=== PATIENT | male | born 1950 | race Caucasian/White ===

== ENCOUNTER 2017-01-13 13:56 | Outpatient (CLI) | payer MEDICARE, OTHER | END 2017-01-13 13:57 | disposition home or self-care (01) | DX: R91.1 Solitary pulmonary nodule (principal) ==

== ENCOUNTER 2018-05-09 11:18 | Outpatient (CLI) | payer MEDICARE, OTHER | END 2018-05-09 11:19 | disposition home or self-care (01) | LOC: SC 11:18 | PROVIDERS: ATTEND Internal Medicine Pulmonary Disease | DX: G47.30 Sleep apnea, unspecified (principal); G47.10 Hypersomnia, unspecified; R06.83 Snoring | CPT/HCPCS: 99203; G0463; 99212 ==

== ENCOUNTER 2018-06-21 20:18 | Outpatient (CLI) | payer MEDICARE, OTHER | END 2018-06-21 20:19 | disposition home or self-care (01) | LOC: SC 20:18 | PROVIDERS: ATTEND Internal Medicine Pulmonary Disease | DX: G47.33 Obstructive sleep apnea (adult) (pediatric) (principal); G47.61 Periodic limb movement disorder; R00.1 Bradycardia, unspecified | CPT/HCPCS: 95810 ==

== ENCOUNTER 2018-07-25 14:02 | Outpatient (CLI) | payer MEDICARE, OTHER | END 2018-07-25 14:03 | disposition home or self-care (01) | LOC: SC 14:02 | PROVIDERS: ATTEND Nurse Practitioner Family | DX: G47.33 Obstructive sleep apnea (adult) (pediatric) (principal); R06.3 Periodic breathing; G47.61 Periodic limb movement disorder; R00.1 Bradycardia, unspecified; I49.3 Ventricular premature depolarization | CPT/HCPCS: 99214; G0463; 99212 ==

== ENCOUNTER 2018-08-19 19:31 | Outpatient (CLI) | payer MEDICARE, OTHER | END 2018-08-19 19:32 | disposition home or self-care (01) | LOC: SC 19:31 | PROVIDERS: ATTEND Internal Medicine Pulmonary Disease | DX: G47.33 Obstructive sleep apnea (adult) (pediatric) (principal); G47.61 Periodic limb movement disorder | CPT/HCPCS: 95811 ==

== ENCOUNTER 2019-01-18 12:47 | Outpatient (CLI) | payer MEDICARE, OTHER | END 2019-01-18 12:48 | disposition home or self-care (01) | LOC: SC 12:47 | PROVIDERS: ATTEND Nurse Practitioner Family | DX: G47.33 Obstructive sleep apnea (adult) (pediatric) (principal) | CPT/HCPCS: 99214; G0463; 99212 ==

== ENCOUNTER 2019-04-19 10:09 | Outpatient (CLI) | payer MEDICARE, OTHER | END 2019-04-19 10:10 | disposition home or self-care (01) | LOC: SC 10:09 | PROVIDERS: ATTEND Nurse Practitioner Family | DX: G47.33 Obstructive sleep apnea (adult) (pediatric) (principal) | CPT/HCPCS: 99215; G0463; 99212 ==

== ENCOUNTER 2019-06-08 09:59 | Outpatient (CLI) | payer MEDICARE, OTHER ==
[2019-06-08 11:20] VITALS: BP 114/64
--- NOTE | 2019-06-08 11:20 | SLEEP CARE CONSULTATION ---
Information from patient questionnaire entered by Oma Mora. I have reviewed and concur with the information entered by Oma Mora. This document represents the service I personally performed and the decisions made by me, Tanisha Silveira, RN, MSN, CARE MGR. History of Present Illness Previous diagnosis: Mild, Obstructive Sleep Apnea-Hypopnea Syndrome AHI: 11.7 Reason for CPAP/BiPAP follow up: other (2 month) Equipment type: CPAP Equipment obtained from: [facility] Mask style: Full face Mask brand: Resmed Backup mask available: No Last cushion change: this week HPI additional information: Oral dryness was better with change in humidity but drooling worse. The mask shown Kimmie View at last visit to allow him to read in bed was not due in his schedule to obtain until this month. He has an appointment with [facility] in a couple of weeks for the fitting. He has not tried CPAP pillow as wants to wait until gets new mask. The new pressure is more comfortable. He is working on battery options for camping. I just talked to [facility] who will be sending me information to handout. CPAP Compliance Data - Data Reviewed with Patient Average duration of nightly device use: 6.5 Compliance rate %: 88.3 (60 days) Current pressure setting (cmH2O): 6-7 Humidity settin Heated hose settin Average residual AHI: 14.2 Central apnea: 0.9 Obstructive apnea: 1.0 Hypopnea: 12.3 Average large leak: 12 mins 52 secs Subjective Patient concerns: reports: mask discomfort (nasal bridge - mask fitting in June), air blowing in eyes (infrequent when mask dislodges), mask leak noise (rare ), dry mouth, nose, throat (dry mouth), other (high AHI numbers). denies: aerophagia, condensation in mask/hose, nasal congestion, epistaxis Observed to snore while using device: No Current pressure setting perceived as: comfortable On therapy, patient: reports: other (not sleeping as well or as rested with new pressure. He is napping more with new pressure.). denies: drowsiness while driving Initial [place] Sleepiness Scale score: 11 Current [place] Sleepiness Scale score: 9 Allergies and Home Medications Known drug allergies: Yes (PPD converter, sulfa, zocor) Home medication list reviewed: Yes Allergy and home medication list: Medication List Medication Name (generic/name brand) Strength & Dosage Amantadine HCI 100mg tab one twice daily Amlodipine Besylate 5mg tab one daily Lisinopril 10mg tab one twice daily with 20mg Lisinopril 20mg tab one twice daily with 10mg Atorvastatin Calcium 80mg tab one daily Carbidopa-Levodopa 25-100mg tab 2.5 am, 2 pm, 1 bedtime Entacapone 200mg tab one daily Topamax 10mg tab one daily Finasteride 5mg tab one daily Hydrochlorothiazide 25mg tab one daily Pramipexole Dihydrochloride 0.75mg tab one three times daily Tamsulosin HCI 0.4mg cap one twice daily Senna & Docusate Sodium 8.6-50mg tab one daily Aspirin 325mg tab one daily Vitamin B-12 1000mcg one twice daily Vitamin D 1000unit tab two daily Allergy List Zocor Sulfa PPD Converter Review of Systems Review of systems same as previous: Yes (denies changes) Physical Exam Blood Pressure: 114/64 Cuff size: long Heart Rate: 68 O2 Saturation: 98 Height: 5 ft 11.5 in Weight (kg): 240 lb Body Mass Index: 33.0 BMI Classification: Class 1 Impression and Plan 1. Obstructive Sleep Apnea-Hypopnea Syndrome, mild, with good treatment compliance and elevated residual AHI. On CPAP therapy, the patient has better sleep quality and is more rested overall. For his mask concerns, a new mask fitting as discussed at last visit is in process and scheduled in a couple of weeks. If there is continued mask leaks, he is to consider the CPAP pillow discussed previously. The new pressure though comfortable has increased sleepiness symptoms so I will change his autoCPAP pressure back to 6-8cmH20. I will also increase the A flex to 3 to reduce recurrence of chest discomfort. He is to contact me if pressure change uncomfortable or still not relieving sleepiness symptoms or chest discomfort. Patient's apnea severity and rationale for treatment to reduce apnea, improve sleep quality and reduce cardiovascular and cerebrovascular events was reviewed. I also reviewed the benefit of consistent device use of CPAP for hypertension, cardiac disease, diabetes. * Change CPAP pressure to 6-8 cmH2O * Try new mask. * Consider CPAP pillow. * Notify me if snoring with mask or feeling that the pressure is too much or too little * Attempt to lose weight * Return for follow up in 2 months, or sooner if concerns arise I spent 100% of this 30 minute visit face to face with the patient with greater than 50% of this was spent time counseling the patient and coordination of care.
== END 2019-06-08 10:00 | disposition home or self-care (01) ==
LOC: SC 09:59
PROVIDERS: ATTEND Nurse Practitioner Family
DX: G47.33 Obstructive sleep apnea (adult) (pediatric) (principal)
CPT/HCPCS: 99214; G0463; 99212

== ENCOUNTER 2019-08-08 10:11 | Outpatient (CLI) | payer MEDICARE, OTHER ==
[2019-08-08 11:15] VITALS: BP 112/72
--- NOTE | 2019-08-08 11:15 | SLEEP CARE CONSULTATION ---
Information from patient questionnaire entered by Yesenia Meyer. I have reviewed and concur with the information entered by Yesenia Meyer. This document represents the service I personally performed and the decisions made by me, Tanisha Silveira, RN, MSN, SPRAY TECHNICIAN. History of Present Illness Previous diagnosis: Mild, Obstructive Sleep Apnea-Hypopnea Syndrome AHI: 11.7 Reason for CPAP/BiPAP follow up: other (2 MONTH) Equipment type: CPAP Equipment obtained from: [facility] Mask style: Full face Mask brand: Resmed Backup mask available: Yes Last cushion change: 6 weeks ago - shipment coming 08-16-19 Prior sleep studies: Yes HPI additional information: Patient noted increased residual AHI until he changed his sleeping position to lying supine with 1 pillow. He feels it is due to less mask leaks and better alignment of neck. I also reduced his autoCPAP pressure due to high AHI from mask leaks. His mask was also dislodging in sleep until he changed position and adjusted mask. He has decided not change mask styles but instead update current mask as headgear wearing out. He found the Kimmie View mask given did not work better. CPAP Compliance Data - Data Reviewed with Patient Average duration of nightly device use: 6H 30M Compliance rate %: 93.3 Current pressure setting (cmH2O): 4-9 Humidity settin Heated hose settin Average residual AHI: 17.3 (but past month 8.2) Central apnea: 1.0 Obstructive apnea: 2.3 Hypopnea: 14.0 Subjective Patient concerns: reports: mask discomfort (from tightness to compensate for mask leaks. ), mask leak noise (only when magnet comes off on left side a couple times a week. ), nasal congestion (post nasal drainage -), dry mouth, nose, throat. denies: aerophagia, air blowing in eyes, condensation in mask/hose, epistaxis (tried a higher humidity but had increased drooling due to Parkinson's) Observed to snore while using device: Yes (mild ) Current pressure setting perceived as: too high (at times) On therapy, patient: reports: sleeping better (a little - getting used to supine position), awakening more refreshed (a little), being more awake and alert during the day (a little), more rested overall (a little). denies: drowsiness while driving Initial [place] Sleepiness Scale score: 11 Current [place] Sleepiness Scale score: 7 Allergies and Home Medications Known drug allergies: No Home medication list reviewed: Yes (adjusted parkinsons medication) Allergy and home medication list: Medication Name (generic/name brand) Strength & Dosage Amantadine HCI 100mg tab one twice daily Amlodipine Besylate 5mg tab one daily Lisinopril 10mg tab one twice daily with 20mg Lisinopril 20mg tab one twice daily with 10mg Atorvastatin Calcium 80mg tab one daily Carbidopa-Levodopa 25-100mg tab 2.5 am, 2 pm, 1 bedtime Entacapone 200mg tab one daily Topamax 10mg tab one daily Finasteride 5mg tab one daily Hydrochlorothiazide 25mg tab one daily Pramipexole Dihydrochloride 0.75mg tab one three times daily Tamsulosin HCI 0.4mg cap one twice daily Senna & Docusate Sodium 8.6-50mg tab one daily Zantac 150mg tab one daily Aspirin 325mg tab one daily Vitamin B-12 1000mcg one twice daily Vitamin D 1000unit tab two daily Allergy List Zocor Sulfa PPD Converter Review of Systems Review of systems same as previous: Yes Physical Exam Blood Pressure: 112/72 Cuff size: long Heart Rate: 74 O2 Saturation: 98 Height: 5 ft 11.5 in Weight: 244 lb 12.8 oz Weight change since last visit: gained 4.8 pounds with vacation Body Mass Index: 33.6 BMI Classification: Obesity Class 1 Impression and Plan 1. Obstructive Sleep Apnea-Hypopnea Syndrome, mild, with good treatment compliance and better apnea control. On CPAP therapy, the patient has slightly better sleep quality and is more rested overall. It appears he has found a better sleeping position supine to reduce mask leaks and residual AHI. However, his preferred position is sleeping on side, so I again reviewed use of a CPAP pillow which he is now going to pursue with updated new mask. Current mask is uncomfortable due to headgear tightness for mask leaks, thus advised to loosen slightly. He is to update his mask as he does not want to change styles at this time. This should reduce his mask leaks and improve comfort of mask as well as reduce residual AHI further. I will also adjust the autoCPAP pressure back to 6- 8cmH20 for pressure comfort. I noted increased centrals intermittently on higher pressure so pressure reduction will reduce occurrence if the cause. Because he has gained some weight on vacation and is now 10 pounds heavier than at study, he was advised how his increase in weight can increase apnea risks and CPAP pressure requirements. He agreed with plan. Patient's apnea severity and rationale for treatment to reduce apnea, improve sleep quality and reduce cardiovascular and cerebrovascular events was reviewed. I also reviewed the benefit of consistent device use of CPAP for hypertension, cardiac disease, diabetes. * * Change CPAP pressure to 6-8 cmH2O * Try CPAP pillow * loosen mask * Update mask and supplies * Notify me if snoring with mask or feeling that the pressure is too much or too little * Attempt to lose weight * Return for follow up in 2 months , or sooner if concerns arise I spent 100% of this 35 minute visit face to face with the patient with greater than 50% of this was spent time counseling the patient and coordination of care.
== END 2019-08-08 10:12 | disposition home or self-care (01) ==
LOC: SC 10:11
PROVIDERS: ATTEND Nurse Practitioner Family
DX: G47.33 Obstructive sleep apnea (adult) (pediatric) (principal)
CPT/HCPCS: 99214; G0463; 99212

== ENCOUNTER 2019-11-21 14:45 | Outpatient (CLI) | payer MEDICARE, OTHER ==
--- NOTE | 2019-11-21 16:42 | SLEEP CARE CONSULTATION ---
Information from patient questionnaire entered by Yesenia Meyer. I have reviewed and concur with the information entered by Yesenia Meyer. This document represents the service I personally performed and the decisions made by me, Brii Gomes MD, [facility]. History of Present Illness Previous diagnosis: Mild, Obstructive Sleep Apnea-Hypopnea Syndrome AHI: 11.7 Reason for follow up: other (2 month - pressure change) Equipment type: CPAP Equipment obtained from: [facility] Mask style: Full face Prior sleep studies: Yes HPI additional information: HPI: Mr. Orosco was diagnosed to have mild obstructive sleep apnea-hypopnea syndrome and returns today for annual follow up of CPAP therapy. The patient purchased the device from [facility] and was fitted with a full face mask. He continues to use the device nightly and all through the night. The compliance report shows that he uses the device 30 nights out of the past 30 n ights, averaging 6.2 hours a night. He complains of no particular problem with the device such as soreness on the face, dry nose, epistaxis, nasal congestion or headache. The heated humidifier is set on 3. He thinks that the pressure of 6 - 8 cmH2O is too low. On the CPAP therapy he notices improvement in his sleep quality, and that he wakes up feeling fresher in the morning and more awake/alert during the day. [place] Sleepiness Scale score is 11. The average residual AHI is 22; and large leak, 5 minutes. CPAP Compliance Data - Data Reviewed with Patient Average duration of nightly device use: 6h 14m Compliance rate %: 90 Current pressure setting (cmH2O): 6-8 Humidity settin Heated hose settin Average residual AHI: 22.8 Average large leak: 5m Subjective Patient concerns: reports: other (not working, no control) Initial [place] Sleepiness Scale score: 11 Current [place] Sleepiness Scale score: 11 Allergies and Home Medications Drug allergies reviewed: Yes Home medication list reviewed: Yes Review of Systems Review of systems same as previous: Yes Physical Exam Height: 5 ft 11.5 in Weight: 250 lb Body Mass Index: 34.4 BMI Classification: Obesity Class 1 Impression and Plan IMPRESSION: 1. Obstructive Sleep Apnea-Hypopnea Syndrome, mild, with the patient continuing to do well on nasal CPAP therapy. He has good compliance and some clinical benefits. The current pressure appears ineffective possibly due to significant weight gain. Overall, he is very satisfied with treatment and plans to continue with it long-term. I will raise the pressure range to 8 12 cmH2O. PLAN: 1. Prescription made to increase the pressure to 8 - 12 cm H2O. 2. Try to lose weight 3. Return for follow up in 1 2 months to recheck the residual AHI value. I spent 100% of this visit face to face with the patient with greater than 50% of this was spent time counseling the patient and coordination of care.
== END 2019-11-21 14:46 ==
LOC: SC 14:45
PROVIDERS: ATTEND Internal Medicine Pulmonary Disease
DX: G47.33 Obstructive sleep apnea (adult) (pediatric) (principal); E66.9 Obesity, unspecified; Z68.34 Body mass index [BMI] 34.0-34.9, adult
CPT/HCPCS: 99213; G0463; 99212

== ENCOUNTER 2020-01-23 17:04 | Outpatient (CLI) | payer MEDICARE, OTHER ==
--- NOTE | 2020-01-23 13:29 | SLEEP CARE CONSULTATION ---
Information from patient questionnaire entered by Yesenia Meyer. I have reviewed and concur with the information entered by Yesenia Meyer. This document represents the service I personally performed and the decisions made by me, Brii Gomes MD, [facility]. History of Present Illness Previous diagnosis: Mild, Obstructive Sleep Apnea-Hypopnea Syndrome AHI: 11.7 Reason for follow up: other (2 MONTH PRESSURE CHANGE) Equipment type: CPAP Equipment obtained from: [facility] HPI additional information: To minimize the risk of COVID-19 exposure, the patient has requested and consented to this video telemedicine visit. The patient also agrees to having his insurance billed. HPI: Mr. Orosco was diagnosed to have mild obstructive sleep apnea-hypopnea syndrome and returns today for annual follow up of CPAP therapy. The patient purchased the device from [email or web address] and was fitted with a ResMed AirTouch F-20 full face mask. He continues to use the device nightly and all through the night. The compliance report shows that he uses the device 60 nights out of the past 60 nights, averaging 5.9 hours a night. He complains of soreness in the back of his head but no particular problem with the device such as soreness on the face, dry nose, epistaxis, nasal congestion or headache. The heated humidifier is set on 3. He thinks that the pressure of 8 - 12 cmH2O is alright (raised from 6 8 cmH2O for elevated residual AHI). On the CPAP therapy he notices improvement in his sleep quality, and that he wakes up feeling fresher in the morning and more awake/alert during the day. The average residual AHI is 12 (was 22); and large leak, 6.5 minutes (was 5 minutes). The 90th percentile pressure is 10.9 cmH2O). CPAP Compliance Data - Data Reviewed with Patient Average duration of nightly device use: 5H 53M Compliance rate %: 86.7 Current pressure setting (cmH2O): 8-12 Humidity settin Heated hose settin Average residual AHI: 12 Average large leak: 6M 34S Subjective Initial [place] Sleepiness Scale score: 11 Allergies and Home Medications Drug allergies reviewed: Yes Home medication list reviewed: Yes Review of Systems Review of systems same as previous: Yes Physical Exam Height: 5 ft 11.5 in Impression and Plan IMPRESSION: 1. Obstructive Sleep Apnea-Hypopnea Syndrome, mild, with the patient continuing to do well on nasal CPAP therapy. He has good compliance and some clinical benefits. The current pressure appears more effective but still a slightly inadequate possibly due to significant weight gain. Overall, he is very satisfied with treatment and plans to continue with it long-term. I will raise the pressure range further to 5 - 15 cmH2O. PLAN: 1. AutoCPAP raised to 10 - 15 cm H2O via the modem, done. 2. Try to lose weight 3. Try a larger mask size because this one comes up into the mouth. 4. Return for follow up in 1 2 months to recheck the residual AHI value. Visit Type: Telehealth Video Location of Provider: Home Patient agrees and consents to this telehealth visit type: Yes Time Spent with Patient (minutes): 12 Provider Statement: I spent 100% of the Telehealth Video Call with the patient with greater than 50% spent counseling the patient and coordination of care.
== END 2020-01-23 17:05 | disposition home or self-care (01) ==
LOC: SC 17:04
PROVIDERS: ATTEND Internal Medicine Pulmonary Disease
DX: G47.33 Obstructive sleep apnea (adult) (pediatric) (principal)
CPT/HCPCS: 99212; 99213

== ENCOUNTER 2020-05-07 12:30 | Outpatient (CLI) | payer MEDICARE, OTHER ==
--- NOTE | 2020-05-07 15:33 | SLEEP CARE CONSULTATION ---
Information from patient questionnaire entered by Yesenia Meyer. I have reviewed and concur with the information entered by Yesenia Meyer. This document represents the service I personally performed and the decisions made by me, Brii Gomes MD, [facility]. History of Present Illness Service Date and Time: 05/07/2020 1230 Previous diagnosis: Mild, Obstructive Sleep Apnea-Hypopnea Syndrome AHI: 11.7 Reason for follow up: three month Equipment type: CPAP Equipment obtained from: [facility] Prior sleep studies: Yes Year and Where: [address] [facility] Type of Sleep Study: Polysomnography HPI additional information: HPI: Mr. Orosco returned to have mild obstructive sleep apnea-hypopnea syndrome and returns today for follow up of CPAP therapy after the pressure adjustment 3 months ago. The patient purchased the device from [facility] and was fitted with a ResMed AirTouch F-20 full face mask. He continues to use the device nightly and all through the night. The compliance report shows that he uses the device 60 nights out of the past 60 nights, averaging 5.9 hours a night. He complains of soreness in the back of his head but no particular problem with the device such as soreness on the face, dry nose, epistaxis, nasal congestion or headache. The heated humidifier is set on 3. He thinks that the pressure of 10 15 cmH2O is alright but it is more difficult to cough (raised from 6 8 and 10 - 15 cmH2O for elevated residual AHI). On the CPAP therapy he notices improvement in his sleep quality, and that he wakes up feeling fresher in the morning and more awake/alert during the day. The average residual AHI is now 6.6 (was 12 and 22); and large leak, 6 minutes (was 5 minutes). The 90th percentile pressure is 12.1 (was 10.9) cmH2O. CPAP Compliance Data - Data Reviewed with Patient Average duration of nightly device use: 6h 2m Compliance rate %: 83.3 Current pressure setting (cmH2O): 10-15 Humidity settin Heated hose settin Average residual AHI: 6.6 Average large leak: 6m 49s Subjective Initial [place] Sleepiness Scale score: 11 Allergies and Home Medications Drug allergies reviewed: Yes Home medication list reviewed: Yes Physical Exam Height: 5 ft 11.5 in Weight: 260 lb Body Mass Index: 35.7 BMI Classification: Obese Impression and Plan IMPRESSION: 1. Obstructive Sleep Apnea-Hypopnea Syndrome, mild, with the patient continuing to do well on nasal CPAP therapy. He has good compliance and some clinical benefits. The current pressure appears more effective but still a slightly inadequate possibly due to significant weight gain. Overall, he is very satisfied with treatment and plans to continue with it long-term. I will raise the pressure range further to 12 - 17 cmH2O. PLAN: 1. AutoCPAP raised to 10 - 15 cm H2O via the modem, done. 2. Try to lose weight 3. Return for follow up in 1 2 months again to recheck the residual AHI value. If the residual AHI remains high, I will order another manual CPAP/BiPAP titration study. Visit Type: In Office Time Spent with Patient (minutes): 15 Provider Statement: I spent 100% of the Face to Face Visit with the patient with greater than 50% spent counseling the patient and coordination of care.
== END 2020-05-07 12:31 | disposition home or self-care (01) ==
LOC: SC 12:30
PROVIDERS: ATTEND Internal Medicine Pulmonary Disease
DX: G47.33 Obstructive sleep apnea (adult) (pediatric) (principal); E66.9 Obesity, unspecified; Z68.35 Body mass index [BMI] 35.0-35.9, adult
CPT/HCPCS: 99213; G0463; 99212

== ENCOUNTER 2020-11-29 15:32 | Outpatient (CLI) | payer MEDICARE, OTHER ==
--- NOTE | 2020-11-29 16:46 | XRAY Report ---
PROCEDURE: Chest 2 View X-Ray INDICATIONS: SOB TECHNIQUE: 2 view(s) of the chest. COMPARISON: Chest x-ray 01/13/2017 FINDINGS: Surgical changes and devices: Sternal wires and hilar clips are present. Lungs and pleura: No pleural effusions or pneumothorax. Lungs are clear. Mild appearance of increa sed pulmonary vascularity. Mediastinum: Mediastinal contours are normal. Heart size is enlarged. Bones and chest wall: No suspicious bony abnormalities. Soft tissues appear unremarkable. IMPRESSION: Cardia megaly with increased vascularity suggestive of edema. Reviewed by: Jessica Stahl MD on 11/29/2020 4:44 PM PST Approved by: Jessica Stahl MD on 11/29/2020 4:44 PM PST Station ID: [id number]
== END 2020-11-29 15:33 | disposition home or self-care (01) ==
LOC: DI 15:32
PROVIDERS: ATTEND Family Medicine
DX: R06.02 Shortness of breath (principal); I51.7 Cardiomegaly